=== PATIENT | male | born 1940 | race Caucasian/White ===

== ENCOUNTER 2016-07-14 12:31 | Observation (INO) | payer OTHER ==
[~2016-07-14] VITALS: Ht 172.7 cm; Wt 93.5 kg
[2016-07-14] MEDS ORDERED: LISI-461 PO (12:37)
[2016-07-14] MEDS ORDERED: PRVC/40 PO (12:37)
[2016-07-14] MEDS ORDERED: FERR1TAB13 PO (12:37)
[2016-07-14] MEDS ORDERED: VRPSR180 PO (12:37)
[2016-07-14] MEDS ORDERED: CHOL2000 PO (12:37)
[2016-07-14 12:41] LABS: BASO % 0.7 %; BASO ABS # 0.05 K/uL (0-0.2); COMPLETE YES; EOS % 2.2 %; HEMATOCRIT 40.9 % (42-52); IG% 0.1 %; LYMPH ABS # 3.16 K/uL (1.2-3.4); MEAN CELL VOLUME 89.3 fL (80-100); MEAN CORPUSCULAR HEMOGLOBIN 30.1 pg (25-34); MEAN CORPUSCULAR HGB CONC 33.7 g/dl (32-36); MEAN PLATELET VOLUME 10.1 fL (7.4-10.4); MONO % 5.7 %; NEUT % 47.3 %; PLATELET COUNT 179 K/uL (130-400); RED BLOOD COUNT 4.58 M/uL (4.7-6.1); WHITE BLOOD COUNT 7.18 K/uL (4.8-10.8)
[2016-07-14 12:59] LABS: BLOOD UREA NITROGEN 24 mg/dl (7-18); BUN/CREATININE RATIO 14.4 (10-20); CALCIUM 8.4 mg/dl (8.5-10.1); CARBON DIOXIDE 28 mmol/L (21-32); CHLORIDE 105 mmol/L (98-107); GLUCOSE 123 mg/dl (70-99); POTASSIUM 4.4 mmol/L (3.5-5.1); SODIUM 139 mmol/L (136-145)
[2016-07-14] MEDS ORDERED: ONDANSETRON INJ 2 MG/ML 2 ML VIAL IV STA (13:06)
[2016-07-14] MEDS ORDERED: SODIUM CHLORIDE 0.9% 1000ML 1,000 ML IV STA (13:06)
--- NOTE | 2016-07-14 13:10 | DIAGNOSTIC IMAGING REPORT ---
CHEST ONE VIEW PORTABLE CLINICAL HISTORY: HEART ALERT COMPARISON STUDY: No previous studies for comparison. FINDINGS: Lung volumes are within normal limits. Minimal bibasilar opacity suggests atelectasis. There is no consolidation to suggest pneumonia and there is no evidence of pulmonary edema. Cardiomediastinal silhouette is normal. IMPRESSION: 1. No acute cardiopulmonary findings. 2. Mild bibasilar opacities suggestive of atelectasis. Electronically signed by: Justin Galeas M.D. 07/14/2016 1:09 PM Dictated Date/Time: 07/14/2016 1:08 PM
[2016-07-14 13:11] LABS: ALKALINE PHOSPHATASE 67 U/L (45-117); ALT/SGPT 71 U/L (12-78); AST/SGOT 26 U/L (15-37); CKMB/CK RATIO 1.3 (0-3.0)
[2016-07-14] MEDS ORDERED: ASPIRIN 81 MG CHEW PO STA (13:48)
[2016-07-14] MEDS ORDERED: MoRPHine SULFATE 2 MG/ML CARP IV PRN (14:15)
[2016-07-14] MEDS ORDERED: ACETAMINOPHEN 325 MG TAB PO PRN (14:15)
[2016-07-14] MEDS ORDERED: NITROGLYCERIN 0.4 MG SL PER TAB CHARGE SL PRN (14:15)
[2016-07-14] MEDS ORDERED: ONDANSETRON INJ 2 MG/ML 2 ML VIAL IV PRN (14:15)
[2016-07-14] MEDS ORDERED: POLYETHYLENE (MIRALAX) 17 GM PACK PO PRN (14:15)
[2016-07-14 14:42] LABS: PROTHROMBIN TIME (PATIENT) 10.9 SECONDS (9.0-12.0)
--- NOTE | 2016-07-14 15:14 | EMERGENCY ROOM VISIT NOTE ---
History Report prepared by Mari: Carlos Eduardo Andres Under the Supervision of: Dr. Terrell Early D.O. First contact with patient: 12:30 Chief Complaint: HEART ALERT Stated Complaint: HEART ALERT History of Present Illness The patient is a 76 year old male who presents to the Emergency Room via EMS with complaints of a syncopal episode that occurred prior to arrival this morning. Per EMS, the patient was nauseous and weak while standing at baptism, and proceeded to have a syncopal episode. The patient says that he slowly lowered himself to the ground, and did not hit his head. When EMS was there, the patient was very diaphoretic and weak. The patient's blood pressure was low at around 50-60, which has since improved to around 120-130. The patient was noted to have a pale skin color, which has since improved to a pink color. He is not as diaphoretic currently. Currently, the patient just complains of weakness, tiredness, and nausea, with no chest pain, abdominal pain, or shortness of breath. The patient denies that he ever had any chest pain or shortness of breath. He says that he did nothing abnormal today. He has high cholesterol. The patient has no history of heart disease, heart attacks, aneurysms, or blood clots. Source of History: patient, EMS Onset: Prior to arrival this morning Position: other (global - syncope) Timing: other (episode) Associated Symptoms: + diaphoresis, + fatigue, + nausea, + weakness, No SOB , No abdominal pain, No chest pain Note: Associated symptoms: Low blood pressure prior to arrival, has since gone back up. Pale skin color, which has since improved to a pink color. Review of Systems See HPI for pertinent positives & negatives. A total of 10 systems reviewed and were otherwise negative. Past Medical & Surgical Medical Problems: (1) HLD (hyperlipidemia) (2) Hypotension (3) Postural dizziness with presyncope (4) Syncope Family History Family history omitted secondary to patient's advanced age. Social History Smoking Status: Never Smoker Alcohol Use: none Housing Status: lives with family Occupation Status: retired Current/Historical Medications Scheduled Cholecalciferol (Vitamin D3), 2,000 INTER.UNIT PO DAILY Ferrous Sulfate (Kp Ferrous Sulfate), 325 TAB PO MWF Lisinopril (Zestril), 10 MG PO DAILY Pravastatin Sod (Pravastatin Sodium), 40 MG PO DAILY Verapamil HCl (Verapamil HCl ER), 180 MG PO DAILY Allergies Coded Allergies: No Known Allergies (Unverified , 07/14/16) Physical Exam Vital Signs Date Time Temp Pulse Resp B/P Pulse Ox O2 Delivery O2 Flow Rate FiO2 07/14/16 13:07 55 07/14/16 13:05 56 16 115/64 96 Room Air 07/14/16 12:42 55 21 126/66 95 Room Air 07/14/16 12:33 96 Room Air 07/14/16 12:33 36.4 55 21 133/88 96 Room Air 07/14/16 12:33 96 Room Air Physical Exam GENERAL: sitting up in bed, disheveled EYE EXAM: normal conjunctiva OROPHARYNX: no exudate, no erythema, lips, buccal mucosa, and tongue normal and mucous membranes are moist NECK: supple, no nuchal rigidity, no adenopathy, non-tender LUNGS: Clear to auscultation. Normal chest wall mechanics HEART: no murmurs, S1 normal and S2 normal ABDOMEN: abdomen soft, non-tender, normo-active bowel sounds, no masses, no rebound or guarding. BACK: Back is symmetrical on inspection and there is no deformity, no midline tenderness, no CVA tenderness. SKIN: no rashes and no bruising UPPER EXTREMITIES: upper extremities are grossly normal. Radial pulses equal bilaterally LOWER EXTREMITIES: No pitting edema. NEURO EXAM: Normal sensorium, cranial nerves II-XII intact, normal speech, no weakness of arms, no weakness of legs. No drift. Finger to nose intact. Gross sensation intact. Medical Decision & Procedures ER Provider Diagnostic Interpretation: Radiology results as stated below per my review and the radiologist's interpretation: CHEST ONE VIEW PORTABLE CLINICAL HISTORY: HEART ALERT COMPARISON STUDY: No previous studies for comparison. FINDINGS: Lung volumes are within normal limits. Minimal bibasilar opacity suggests atelectasis. There is no consolidation to suggest pneumonia and there is no evidence of pulmonary edema. Cardiomediastinal silhouette is normal. IMPRESSION: 1. No acute cardiopulmonary findings. 2. Mild bibasilar opacities suggestive of atelectasis. Electronically signed by: Justin Galeas M.D. 07/14/2016 1:09 PM Dictated Date/Time: 07/14/2016 1:08 PM Laboratory Results 07/14/16 12:10 Red Blood Count 4.58, Mean Corpuscular Volume 89.3, Mean Corpuscular Hemoglobin 30.1, Mean Corpuscular Hemoglobin Concent 33.7, Mean Platelet Volume 10.1, Neutrophils (%) (Auto) 47.3, Lymphocytes (%) (Auto) 44.0, Monocytes (%) (Auto) 5.7, Eosinophils (%) (Auto) 2.2, Basophils (%) (Auto) 0.7, Neutrophils # (Auto) 3.39, Lymphocytes # (Auto) 3.16, Monocytes # (Auto) 0.41, Eosinophils # (Auto) 0.16, Basophils # (Auto) 0.05 07/14/16 12:10 Test 07/14/16 12:10 White Blood Count 7.18 K/uL (4.8-10.8) Red Blood Count 4.58 M/uL (4.7-6.1) Hemoglobin 13.8 g/dL (14.0-18.0) Hematocrit 40.9 % (42-52) Mean Corpuscular Volume 89.3 fL (80-100) Mean Corpuscular Hemoglobin 30.1 pg (25-34) Mean Corpuscular Hemoglobin Concent 33.7 g/dl (32-36) Platelet Count 179 K/uL (130-400) Mean Platelet Volume 10.1 fL (7.4-10.4) Neutrophils (%) (Auto) 47.3 % Lymphocytes (%) (Auto) 44.0 % Monocytes (%) (Auto) 5.7 % Eosinophils (%) (Auto) 2.2 % Basophils (%) (Auto) 0.7 % Neutrophils # (Auto) 3.39 K/uL (1.4-6.5) Lymphocytes # (Auto) 3.16 K/uL (1.2-3.4) Monocytes # (Auto) 0.41 K/uL (0.11-0.59) Eosinophils # (Auto) 0.16 K/uL (0-0.5) Basophils # (Auto) 0.05 K/uL (0-0.2) RDW Standard Deviation 44.6 fL (36.4-46.3) RDW Coefficient of Variation 13.6 % (11.5-14.5) Immature Granulocyte % (Auto) 0.1 % Immature Granulocyte # (Auto) 0.01 K/uL (0.00-0.02) Prothrombin Time 10.9 SECONDS (9.0-12.0) Prothromb Time International Ratio 1.0 (0.9-1.1) Anion Gap 6.0 mmol/L (3-11) Est Creatinine Clear Calc Drug Dose 41.4 ml/min Estimated GFR () 44.1 Estimated GFR (Non- 38.1 BUN/Creatinine Ratio 14.4 (10-20) Calcium Level 8.4 mg/dl (8.5-10.1) Total Bilirubin 0.5 mg/dl (0.2-1) Direct Bilirubin 0.1 mg/dl (0-0.2) Aspartate Amino Transf (AST/SGOT) 26 U/L (15-37) Alanine Aminotransferase (ALT/SGPT) 71 U/L (12-78) Alkaline Phosphatase 67 U/L (45-117) Total Creatine Kinase 68 U/L (39-308) Creatine Kinase MB 0.9 ng/ml (0.5-3.6) Creatine Kinase MB Ratio 1.3 (0-3.0) Troponin I < 0.015 ng/ml (0-0.045) Total Protein 7.3 gm/dl (6.4-8.2) Albumin 4.2 gm/dl (3.4-5.0) Lipase 120 U/L (73-393) Laboratory results per my review. Medications Administered Medications (Trade) Dose Ordered Sig/Vinayak Route Start Time Stop Time Status Last Admin Dose Admin Sodium Chloride (Nss 1000ml) 1,000 ml @ 999 mls/hr Q1H1M STAT IV 07/14/16 13:06 07/14/16 14:06 DC 07/14/16 13:22 999 MLS/HR Ondansetron HCl (Zofran Inj) 4 mg NOW STAT IV 07/14/16 13:06 07/14/16 13:07 DC 07/14/16 13:22 4 MG Aspirin (Aspirin Chew) 324 mg NOW STAT PO 07/14/16 13:48 07/14/16 13:49 DC 07/14/16 13:59 324 MG ECG Indication: syncope Rate (beats per minute): 54 Rhythm: sinus bradycardia Findings: 1st degree AV block, other (normal intervals) Comparison ECG Date: compared to June 02 2012, everything is new Change: Previous ECG by EMS: Sinus bradycardia with rate of 54 bpm, ST segment elevations inferior and lateral leads, with flipped T-waves in AVF. ED Course ED COURSE: Vital signs were reviewed and showed bradycardic. The patients medical record was reviewed The above diagnostic studies were performed and reviewed. ED treatments and interventions as stated above. 1230: The patient was evaluated in room B1. A complete history and physical examination was performed. 1233: I discussed the patient with Dr. Amy OGLESBY cardiology. 1235: Bedside US showed no LV wall motion abnormality - visualized by thermoscrew operator Dr. Reyes and he agrees. 1306: Ordered Zofran Inj 4 mg IV, NSS 1000 ml @ 999 mls/hr IV. 1348: Ordered Aspirin Chew 324 mg PO. 1341: Upon reevaluation, the patient is feeling fine. I discussed my findings with the patient and he understands and agrees with the treatment plan. Based on the patients age, coexisting illnesses, exam and lab findings the decision to treat as an inpatient was made. The patient remained stable while under my care. The patient will be evaluated for further management. 1346: I discussed the patient with Cammie Aden - she will evaluate the patient for further treatment. Medical Decision Differential diagnosis includes etiologies such as vasovagal event, infection, hypoglycemia, electrolyte abnormalities, cardiac sources, intracerebral event, toxicologic, neurologic, as well as others were entertained. Patient is a 76-year-old male who presents the ER for single episode. He presented via EMS and received medical command with an EKG showing ST segment elevations in the inferior and lateral leads. It was difficult to ascertain a complete story due to the command call cutting exam. Prior to presentation a STEMI alert was called. Patient's only complaint was nausea. He denied any chest pain or shortness of breath. Bedside ultrasound showed normal LV function and was reviewed with the thermoscrew operator at bedside. He agreed that this was not a STEMI. Blood work was unremarkable along with chest x-ray. Patient was updated at bedside and was admitted to internal medicine with a syncopal event and hypotension likely causing ST segment elevations which resolved. She was given a bolus normal saline, aspirin and Zofran. Consults Time Called: 1225 Consulting Physician: Dr. Amy OGLESBY cardiology Returned Call: 1233 (in person) I discussed the patient with Dr. Amy OGLESBY cardiology. Additional Consults: Time Called: 1341 Consulted Physician: Cammie Aden Returned Call: 1340 Additional Comments: I discussed the patient with Cammie Aden - she will evaluate the patient for further treatment. Impression Primary Impression: Syncope Additional Impression: EKG abnormalities Scribe Attestation The scribe's documentation has been prepared under my direction and personally reviewed by me in its entirety. I confirm that the note above accurately reflects all work, treatment, procedures, and medical decision making performed by me. Departure Information Dispostion Being Evaluated By Hospitalist Forms WORK / SCHOOL INSTRUCTIONS, HOME CARE DOCUMENTATION FORM, IMPORTANT VISIT INFORMATION Patient Instructions My [facility] Problem Qualifiers Primary Impression: Syncope Syncope type: unspecified Qualified Codes: R55 - Syncope and collapse
[2016-07-14 15:15] VITALS: BP 143/67; PULSE 60; TEMP 36.4; O2SAT 95; Ht 172.7 cm; Wt 93.5 kg
[2016-07-14] MEDS ORDERED: IV FLUIDS COMPLETED PRN (15:15)
--- NOTE | 2016-07-14 15:34 | History and Physical ---
History & Physical Date & Time of Service: July 14, 2016 at 15:04 Chief Complaint: Heart Alert Primary Care Physician: Tess Elmore C.R.N.P. History of Present Illness Source: patient, hospital records This is a 76 year old male with PMH of hypertension and hyperlipidemia who presents to the ED for presyncope. Patient follows with Dr. Sharma at the [facility]. Patient states he was feeling well recently, eating normally including breakfast this morning, then at buddhist experience presyncopal episode. After standing for some time patient developed lightheadedness, nausea, and family noticed he was pale and diaphoretic. Patient then sat himself down then leaned over in the pew without any trauma. His shook him without any verbal response. is unsure if his eyes were open. Patient states he was aware the whole time but felt too weak/ tired to respond. There was no seizure like activity or incontinence. When EMS arrived patient's BP was 50s-60s systolic. He received 700 mL IVF bolus prior to arrival. In the ER patient's BP is 110s- 130s systolic. He received additional 1 liter IVF's and aspirin 324 mg in the ER. Patient is feeling better currently. He denies recent fever, chills, LARIOS, blurry vision, difficulty speaking or swallowing, focal weakness or numbness, URI symptoms, cough, SOB, chest pain, palpitations, vomiting, diarrhea, dysuria , frequency, calf pain, edema, abnormal bleeding. Patient denies history of CAD , PA, valve disorder, stroke, DM, lung, liver, or kidney disease. No recent medication changes. Patient states his baseline BP is approximately 120 systolic. Patient reports syncope 20 years ago after bending over and standing up quickly. He reports having an unremarkable Holter monitor and stress test at that time. He states last resting echo was unremarkable in summer of 2015. Family reports possible syncope episodes within the past 5 years but are not able to recall details. Past Medical/Surgical History Medical Problems: (1) HLD (hyperlipidemia) Status: Chronic (2) Hypertension Status: Chronic Surgical Problems: (1) S/P appendectomy Status: Chronic (2) S/P hemorrhoidectomy Status: Chronic Family History FH: CAD (coronary artery disease) FATHER ( of [place] age 78) Social History Smoking Status: Never Smoker Alcohol Use: none Drug Use: none Marital Status: Housing status: lives with significant other Occupational Status: retired (army ) Allergies Coded Allergies: No Known Allergies (Unverified , 07/14/16) Home Medications Scheduled Cholecalciferol (Vitamin D3), 2,000 INTER.UNIT PO DAILY Ferrous Sulfate (Kp Ferrous Sulfate), 325 TAB PO MWF Lisinopril (Zestril), 10 MG PO DAILY Pravastatin Sod (Pravastatin Sodium), 40 MG PO DAILY Verapamil HCl (Verapamil HCl ER), 180 MG PO DAILY Review of Systems Ten systems reviewed and negative except as noted in HPI. Physical Exam Vital Signs Date Time Temp Pulse Resp B/P Pulse Ox O2 Delivery O2 Flow Rate FiO2 07/14/16 13:07 55 07/14/16 13:05 56 16 115/64 96 Room Air 07/14/16 12:42 55 21 126/66 95 Room Air 07/14/16 12:33 96 Room Air 07/14/16 12:33 36.4 55 21 133/88 96 Room Air 07/14/16 12:33 96 Room Air General Appearance: WD/WN, no apparent distress, + pertinent finding (pleasant alert 76 year old male, no distress, , daughter, granddaughter, structural steel painter at bedside) Head: normocephalic, atraumatic Eyes: normal inspection, PERRL, EOMI ENT: pharynx normal, + pertinent finding (bilateral hearing aids) Neck: supple, trachea midline Respiratory/Chest: lungs clear, normal breath sounds, no respiratory distress, no accessory muscle use Cardiovascular: regular rate, rhythm, no murmur, normal peripheral pulses Abdomen/GI: normal bowel sounds, non tender, soft Extremities/Musculoskelatal: no calf tenderness, no pedal edema Neurologic/Psych: pharmacy resident II-XII nml as tested, no motor/sensory deficits ( strength 5/5 all extremities), alert, normal mood/affect, oriented x 3, + pertinent finding (no pronator drift. toes are downgoing. ) Skin: normal color, warm/dry Diagnostics Laboratory Results Results Past 24 Hours Test 07/14/16 12:10 Range/Units White Blood Count 7.18 4.8-10.8 K/uL Red Blood Count 4.58 4.7-6.1 M/uL Hemoglobin 13.8 14.0-18.0 g/dL Hematocrit 40.9 42-52 % Mean Corpuscular Volume 89.3 80-100 fL Mean Corpuscular Hemoglobin 30.1 25-34 pg Mean Corpuscular Hemoglobin Concent 33.7 32-36 g/dl Platelet Count 179 130-400 K/uL Mean Platelet Volume 10.1 7.4-10.4 fL Neutrophils (%) (Auto) 47.3 % Lymphocytes (%) (Auto) 44.0 % Monocytes (%) (Auto) 5.7 % Eosinophils (%) (Auto) 2.2 % Basophils (%) (Auto) 0.7 % Neutrophils # (Auto) 3.39 1.4-6.5 K/uL Lymphocytes # (Auto) 3.16 1.2-3.4 K/uL Monocytes # (Auto) 0.41 0.11-0.59 K/uL Eosinophils # (Auto) 0.16 0-0.5 K/uL Basophils # (Auto) 0.05 0-0.2 K/uL RDW Standard Deviation 44.6 36.4-46.3 fL RDW Coefficient of Variation 13.6 11.5-14.5 % Immature Granulocyte % (Auto) 0.1 % Immature Granulocyte # (Auto) 0.01 0.00-0.02 K/uL Prothrombin Time 10.9 9.0-12.0 SECONDS Prothromb Time International Ratio 1.0 0.9-1.1 Sodium Level 139 136-145 mmol/L Potassium Level 4.4 3.5-5.1 mmol/L Chloride Level 105 98-107 mmol/L Carbon Dioxide Level 28 21-32 mmol/L Anion Gap 6.0 3-11 mmol/L Blood Urea Nitrogen 24 7-18 mg/dl Creatinine 1.70 0.60-1.40 mg/dl Est Creatinine Clear Calc Drug Dose 41.4 ml/min Estimated GFR () 44.1 Estimated GFR (Non- 38.1 BUN/Creatinine Ratio 14.4 10-20 Random Glucose 123 70-99 mg/dl Calcium Level 8.4 8.5-10.1 mg/dl Total Bilirubin 0.5 0.2-1 mg/dl Direct Bilirubin 0.1 0-0.2 mg/dl Aspartate Amino Transf (AST/SGOT) 26 15-37 U/L Alanine Aminotransferase (ALT/SGPT) 71 12-78 U/L Alkaline Phosphatase 67 45-117 U/L Total Creatine Kinase 68 39-308 U/L Creatine Kinase MB 0.9 0.5-3.6 ng/ml Creatine Kinase MB Ratio 1.3 0-3.0 Troponin I < 0.015 0-0.045 ng/ml Total Protein 7.3 6.4-8.2 gm/dl Albumin 4.2 3.4-5.0 gm/dl Lipase 120 73-393 U/L Diagnostic Radiology CHEST ONE VIEW PORTABLE CLINICAL HISTORY: HEART ALERT COMPARISON STUDY: No previous studies for comparison. FINDINGS: Lung volumes are within normal limits. Minimal bibasilar opacity suggests atelectasis. There is no consolidation to suggest pneumonia and there is no evidence of pulmonary edema. Cardiomediastinal silhouette is normal. IMPRESSION: 1. No acute cardiopulmonary findings. 2. Mild bibasilar opacities suggestive of atelectasis. EKG pre-hospital EKG showed [address] elevation in and lead II and aVF repeat EKG showed resolution of ST abnormalities Impression Assessment and Plan PRESYNCOPE Possibly due to orthostatic hypotension given the history; Rule out ACS Was hypotensive to 50s-60s systolic prior to arrival -> resolved to 110s-130s in ER Had inferior ST elevation prior to arrival which resolved on repeat EKG Heart alert called in ER; patient evaluated by Dr. Reyes Bedside echo grossly normal EF per ER provider Initial troponin negative Denies chest pain or SOB Monitor orthostatic vitals Hold antihypertensive medications- lisinopril and verapamil Trend serial cardiac enzymes Check echo in am Check fasting lipid panel in am Consult cardiology POSSIBLE KAYE Creatinine is 1.7; no baseline available for comparison Records requested from his PCP at the [facility] Received IVF's 700 mL en route and 1 liter in ER Repeat PRP in am ATELECTASIS CXR showed bibasilar opacities suggestive of atelectasis Denies fever, cough, SOB Incentive spirometry ordered HYPERLIPIDEMIA Continue pravastatin DVT PROPHYLAXIS Heparin SQ CODE STATUS Full code per my discussion with the patient DISPOSITION Observation to telemetry Follows with Dr. Toscano at the [facility] for primary care Patient seen in collaboration with Dr. Ruelas. Please see her addendum. I have seen and examined the patient and agree with the assessment and plan as stated above. My impression is this was a benign episode of lightheadedness 2/ 2 OH which responded well to IVF. For the EKG changes that were seen initially , including ST elevation in II and AVF, which then resolved minutes later, we have placed him on telemetry, ordered serial enzymes and will have Cardiology see him in the morning and review his telemetry. He has already had two sets of negative cardiac enzymes and is asymptomatic. Records request will be helpful to give a more accurate medical history. Suraj, DO Level of Care Telemetry Resuscitation Status FULL RESUSCITATION VTE Prophylaxis VTE Risk Assessment Done? Y/N: Yes Risk Level: Moderate Given or contraindicated: Unfractionated heparin SQ
[2016-07-14 18:43] LABS: CKMB/CK RATIO 1.2 (0-3.0)
[2016-07-14 19:16] VITALS: BP 163/73; PULSE 65; TEMP 36.7; O2SAT 95
[2016-07-14] MEDS: HEPARIN SOD 5000 UNIT/0.5 ML CARP SQ SCH (22:00)
[2016-07-14 23:57] VITALS: BP_SYST 145; BP_SYST 151; BP_SYST 178; BP_DIAS 73; BP_DIAS 77; BP_DIAS 81; PULSE 60; PULSE 61; TEMP 36.9; O2SAT 92
[2016-07-15 01:12] LABS: CKMB/CK RATIO 1.5 (0-3.0)
[2016-07-15 04:16] VITALS: BP 123/73; PULSE 88; TEMP 36.8; O2SAT 94
[2016-07-15] MEDS: HEPARIN SOD 5000 UNIT/0.5 ML CARP SQ SCH ×2 (06:00→14:00)
[2016-07-15 06:04] LABS: HEMATOCRIT 37.2 % (42-52); MEAN CELL VOLUME 90.3 fL (80-100); MEAN CORPUSCULAR HEMOGLOBIN 30.6 pg (25-34); MEAN CORPUSCULAR HGB CONC 33.9 g/dl (32-36); MEAN PLATELET VOLUME 10.4 fL (7.4-10.4); PLATELET COUNT 146 K/uL (130-400); RED BLOOD COUNT 4.12 M/uL (4.7-6.1); WHITE BLOOD COUNT 6.26 K/uL (4.8-10.8)
[2016-07-15 06:36] LABS: BUN/CREATININE RATIO 17.9 (10-20); CALCIUM 7.9 mg/dl (8.5-10.1); CREATININE 1.4 mg/dl (0.60-1.40); POTASSIUM 4.4 mmol/L (3.5-5.1)
[2016-07-15 06:39] LABS: CHOLESTEROL/HDL RATIO 3.8
[2016-07-15 07:01] VITALS: BP_SYST 121; BP_SYST 132; BP_SYST 139; BP_DIAS 66; BP_DIAS 67; BP_DIAS 76; PULSE 66; TEMP 36.8; O2SAT 94
[2016-07-15] MEDS ORDERED: PRAVASTATIN SOD 40 MG TAB PO SCH (09:00)
[2016-07-15] MEDS ORDERED: ASPIRIN 81 MG ECTAB PO SCH (09:00)
[2016-07-15] MEDS ORDERED: FERROUS SULFATE 325 MG TAB PO SCH (09:00)
[2016-07-15] MEDS ORDERED: CHOLECALCIFEROL 1000 INTER.UNIT TAB PO SCH (09:00)
--- NOTE | 2016-07-15 09:45 | ECHOCARDIOGRAM REPORT ---
*NOTICE TO RECEIVING [employer] This information is strictly Confidential and protected under [place] law. [place] law prohibits you from making any further disclosure of this information unless further disclosure is expressly permitted by the written consent of the person to whom it pertains or is authorized by law. A general authorization for the release of medical or other information is not sufficient for this purpose. Hospital accepts no responsibility if the information is made available to any other person, INCLUDING THE PATIENT. Interpretation Summary * Name: JUAN FRANCISCO LAGUNAS Study Date: 07/15/2016 06:46 AM BP: 145/81 mmHg * Patient Location: [facility] HR: 88 * : 1940 (M/d/yyyy) Gender: Male Height: 68 in * Age: 76 yrs Ethnicity: CA Weight: 217 lb * Ordering Physician: Shannon Ruelas * Referring Physician: Self, Referred * Performed By: Arielle Guerrero RCS * * Reason For Study: Alt. of Consciousness * BSA: 2.1 m2 * -- Conclusions -- * Normal LV chamber size and wall thickness. * Normal LV systolic function, EF 65-70%. * No segmental left ventricular wall motion abnormalities are noted. * Grade I diastolic dysfunction. * No significant valvular pathology. Procedure Details * A complete two-dimensional transthoracic echocardiogram was performed (2D, M-mode, Doppler and color flow Doppler). Left Ventricle * The left ventricle is normal in size. * There is normal left ventricular wall thickness. * Left ventricular systolic function is normal. * No segmental left ventricular wall motion abnormalities are noted. * Ejection Fraction = 65-70%. * The left ventricular wall motion is normal. Right Ventricle * The right ventricular cavity size is normal (basal dimension <4.2 cm in right ventricular apical 4-chamber view). * The right ventricular systolic function is normal as assessed by tricuspid annular plane systolic excursion (TAPSE) (normal >1.5 cm). Atria * The left atrial size is normal. * Right atrial size is normal. * No ASD detected; PFO is not assessed. Mitral Valve * The mitral valve is normal in structure and function. Tricuspid Valve * The tricuspid valve is normal in structure and function. Aortic Valve * The aortic valve is not well visualized. * The aortic valve is trileaflet. * No hemodynamically significant valvular aortic stenosis. * There is no significant aortic regurgitation. Pulmonic Valve * The pulmonary valve is not well seen, but the Doppler examination is normal without significant regurgitation or stenosis. Great Vessels * The aortic root is normal size. Pericardium/Pleural * There is no pericardial effusion. Left Ventricular Diastolic Function * Grade I diastolic dysfunction, (abnormal relaxation pattern). MMode 2D Measurements and Calculations IVSd 0.99 cm IVSs 1.3 cm LVIDd 4.1 cm LVIDs 2.7 cm LVPWd 10 cm LVPWs 1.3 cm IVS/LVPW 0.99 FS 35.4 % EDV(Teich) 74.8 ml ESV(Teich) 25.9 ml EF(Teich) 65.3 % EDV(cubed) 69.6 ml ESV(cubed) 18.7 ml EF(cubed) 73.1 % % IVS thick 28.8 % % LVPW thick 29.8 % LV mass(C)d 131.4 grams LV mass(C)dI 62.1 grams/m\S\2 LV mass(C)s 103.5 grams LV mass(C)sI 48.9 grams/m\S\2 CO(Teich) 3.0 l/min CI(Teich) 1.4 l/min/m\S\2 SV(Teich) 48.9 ml SI(Teich) 23.1 ml/m\S\2 CO(cubed) 3.1 l/min CI(cubed) 1.5 l/min/m\S\2 SV(cubed) 50.9 ml SI(cubed) 24.0 ml/m\S\2 Ao root diam 2.7 cm Ao root area 5.8 cm\S\2 LA dimension 3.4 cm LA/Ao 1.3 LVAd ap4 27.5 cm\S\2 LVLd ap4 7.8 cm EDV(MOD-sp4) 80.0 ml LVAs ap4 13.4 cm\S\2 LVLs ap4 6.1 cm ESV(MOD-sp4) 26.0 ml EF(MOD-sp4) 67.5 % LVAd ap2 31.5 cm\S\2 LVLd ap2 8.8 cm EDV(MOD-sp2) 93.0 ml LVAs ap2 17.2 cm\S\2 LVLs ap2 7.5 cm ESV(MOD-sp2) 32.0 ml EF(MOD-sp2) 65.6 % CO(MOD-sp4) 3.3 l/min CI(MOD-sp4) 1.6 l/min/m\S\2 SV(MOD-sp4) 54.0 ml SI(MOD-sp4) 25.5 ml/m\S\2 CO(MOD-sp2) 3.7 l/min CI(MOD-sp2) 1.8 l/min/m\S\2 SV(MOD-sp2) 61.0 ml SI(MOD-sp2) 28.8 ml/m\S\2 Doppler Measurements and Calculations MV E max callie 57.8 cm/sec MV A max callie 77.0 cm/sec MV E/A 0.75 MV P1/2t max callie 66.8 cm/sec MV P1/2t 92.0 msec MVA(P1/2t) 2.4 cm\S\2 MV dec slope 212.7 cm/sec\S\2 MV dec time 0.24 sec Ao V2 max 97.0 cm/sec Ao max PG 3.8 mmHg Ao max PG (full) 0.61 mmHg LV V1 max PG 3.1 mmHg LV V1 max 88.7 cm/sec PA V2 max 95.9 cm/sec PA max PG 3.7 mmHg PI max callie 216.0 cm/sec PI max PG 18.7 mmHg PI dec slope 176.9 cm/sec\S\2 PI P1/2t 357.7 msec
--- NOTE | 2016-07-15 10:26 | Cardiology Consultation ---
Cardiology Consultation Date of Consultation: July 15, 2016 Requesting Physician: Suraj Attending Damper Fitter: Sylvester (Jori Schaffer PA-C) History of Present Illness History of Present Illness: Mr. Arroyo is a very pleasant 76 year old male who is being seen at the request of Dr. Ruelas. Reasons for consultation include syncope, EKG changes initially, resolved. Mr. Arroyo describes standing for a prolonged period of time at [employer] yesterday while two baptisms were transpiring. He notes, while standing, developing lightheadedness that required him to sit down. While sitting in the pew he began to feel warm and diaphoretic. He notes that he had to put his hands on the pew in front of him and that he knew he had to get down fast. He notes that his stomach started rolling, developing nausea without emesis. He felt weak and couldn't move, talk, or open his eyes. He notes laying there until EMS arrived. He does not believe he experienced true loss of consciousness. He denies tongue bitting. Denies bowel or bladder incontinence. No seizure type activity noted on review of the available documentation and discussion with the patient. The patient ate a normal breakfast Friday. He denies recent illness or injury. No recent surgery. He denies recent issues with vomiting or diarrhea. Denies recent medication changes. Upon EMS arrival the patient was noted to be hypotensive. He was administered IVF's, 700 mL prior to arrival at the [facility] ER. Systolic BP on presentation was 110s-130s. He received an additional 1 liter IVF's as well as Aspirin 324 mg in the ER. EKG dated and timed July 14, 2016 at 12:33:06 revealed sinus bradycardia at 54 bpm with a first degree AV block and mild ST segment elevation in the inferior and lateral leads. EKG this morning reveals sinus rhythm at 62 bpm with a first degree AV block. Cardiac enzymes are negative times three. Admission CXR showed no acute cardiopulmonary findings. Creatinine was 1.7 on presentation, 1.4 mg/dL this morning. The patient notes similar (near syncope/syncope) spells in the past. He describes an episode, after his alarm clock went off, when he bent over to pick something up off the floor then walked to the bathroom and experienced a syncope episode ~ 20 years ago. He describes another spell when he was out in the yard playing with his granddaughter and stood up then dropped to the ground. The patient describes substernal chest soreness when walking up an incline. This does not require him to stop or slow down, resolving when walking on the level. This pattern has not progressed in severity and has been present for years. He denies change in exercise tolerance. No resting or nocturnal chest discomfort. No palpitations. No new or worsening dyspnea, cough, orthopnea, PND , or peripheral edema. No history of CO, CHF, heart murmur, rheumatic fever, or scarlet fever. (Jori Schaffer PA-C) History Past Medical and Surgical History: Hypertension Dyslipidemia Family history of coronary artery disease Appendectomy in 1966 Hemorrhoidectomy in 1971 Bilateral cataract extractions Family History: Mother is alive at 97. Father at 78 with an CO. He has one brother and three sisters; two siblings with diabetes mellitus Social History: Nonsmoker. No alcohol. No illegal drug use. . Four children without cardiac issues. Retired. [employer], 3 years, 2 months, and 3 days. [place] during the [place] War. After the [employer] he worked for [employer] and [employer]. [facility]. He notes recently transferring from the [facility] to the [facility]. He followed with Dr. Sharma in [place] though has yet to establish in [place]. (Jori Schaffer PA-C) Review Of Systems General: No fever or chills. HEENT: Bilateral cataract extraction. LUMBEE. Bilateral hearing aids. No headache. No head trauma. Cardiovascular: See above. Pulmonary: No cough. No wheeze. No hemoptysis. No history of COPD, emphysema, PE , or sleep apnea. Gastrointestinal: See above. Skin: No rash. No tick bites. Musculoskeletal: Arthritis. Neurological: Denies history of TIA, CVA, or seizures Complete review of systems is as stated above, negative, or noncontributory. (Jori Schaffer PA-C) Allergies Coded Allergies: No Known Allergies (Unverified , 07/14/16) Medications Reported Home Medications Medications Dose Route/Sig Max Daily Dose Days Date Category Kp Ferrous Sulfate (Ferrous Sulfate) 325 Mg Tab 325 Tab PO MWF 07/14/16 Reported Pravastatin Sodium (Pravastatin Sod) 40 Mg Tab 40 Mg PO DAILY 07/14/16 Reported Verapamil HCl ER (Verapamil HCl) 180 Mg Tabcr 180 Mg PO DAILY 07/14/16 Reported Zestril (Lisinopril) 10 Mg Tab 10 Mg PO DAILY 07/14/16 Reported Vitamin D3 (Cholecalciferol) 2,000 Unit Cap 2,000 Inter.unit PO DAILY 90 07/14/16 Reported (Jori Schaffer PA-C) Physical Exam Vital Signs (Last 8hrs): Last 8 Hrs Date Time Temp Pulse Resp B/P Pulse Ox O2 Delivery O2 Flow Rate FiO2 07/15/16 07:57 Room Air 07/15/16 07:01 36.8 66 18 132/76 94 Room Air 66 139/67 66 121/66 07/15/16 04:16 36.8 88 20 123/73 94 Room Air 07/15/16 04:00 Room Air General Appearance: Alert and Oriented x3. NAD. Head: Normocephalic Atraumatic. Eyes: PER, EOMI, conjunctiva and sclera clear Neck: Supple. No carotid bruits noted. No JVD. No HJD. Respiratory: Breath sounds clear to auscultation bilaterally. No w/r/r. Cardiovascular: RRR, 70 bpm. Grade II/ systolic murmur heard best at the LLSB. No diastolic murmur. No rub. No gallop. PMI is not displaced. Abdomen: +BS. No abdominal bruits. Soft. Nontender. No masses appreciated. Extremities: No edema. No clubbing. No cyanosis. Distal pulses 2/4 bilaterally. Neuro: No focal deficits. Psychiatric: Normal affect. (Jori Schaffer PA-C) Data Last 24 Hours Test 07/14/16 12:10 07/14/16 18:15 07/15/16 00:25 07/15/16 05:12 White Blood Count 7.18 K/uL 6.26 K/uL Red Blood Count 4.58 M/uL 4.12 M/uL Hemoglobin 13.8 g/dL 12.6 g/dL Hematocrit 40.9 % 37.2 % Mean Corpuscular Volume 89.3 fL 90.3 fL Mean Corpuscular Hemoglobin 30.1 pg 30.6 pg Mean Corpuscular Hemoglobin Concent 33.7 g/dl 33.9 g/dl Platelet Count 179 K/uL 146 K/uL Mean Platelet Volume 10.1 fL 10.4 fL Neutrophils (%) (Auto) 47.3 % Lymphocytes (%) (Auto) 44.0 % Monocytes (%) (Auto) 5.7 % Eosinophils (%) (Auto) 2.2 % Basophils (%) (Auto) 0.7 % Neutrophils # (Auto) 3.39 K/uL Lymphocytes # (Auto) 3.16 K/uL Monocytes # (Auto) 0.41 K/uL Eosinophils # (Auto) 0.16 K/uL Basophils # (Auto) 0.05 K/uL RDW Standard Deviation 44.6 fL 46.1 fL RDW Coefficient of Variation 13.6 % 13.8 % Immature Granulocyte % (Auto) 0.1 % Immature Granulocyte # (Auto) 0.01 K/uL Prothrombin Time 10.9 SECONDS Prothromb Time International Ratio 1.0 Sodium Level 139 mmol/L 140 mmol/L Potassium Level 4.4 mmol/L 4.4 mmol/L Chloride Level 105 mmol/L 108 mmol/L Carbon Dioxide Level 28 mmol/L 27 mmol/L Anion Gap 6.0 mmol/L 5.0 mmol/L Blood Urea Nitrogen 24 mg/dl 25 mg/dl Creatinine 1.70 mg/dl 1.40 mg/dl Est Creatinine Clear Calc Drug Dose 41.4 ml/min 49.0 ml/min Estimated GFR () 44.1 55.8 Estimated GFR (Non- 38.1 48.1 BUN/Creatinine Ratio 14.4 17.9 Random Glucose 123 mg/dl 86 mg/dl Calcium Level 8.4 mg/dl 7.9 mg/dl Total Bilirubin 0.5 mg/dl Direct Bilirubin 0.1 mg/dl Aspartate Amino Transf (AST/SGOT) 26 U/L Alanine Aminotransferase (ALT/SGPT) 71 U/L Alkaline Phosphatase 67 U/L Total Creatine Kinase 68 U/L 58 U/L 55 U/L Creatine Kinase MB 0.9 ng/ml 0.7 ng/ml 0.8 ng/ml Creatine Kinase MB Ratio 1.3 1.2 1.5 Troponin I < 0.015 ng/ml < 0.015 ng/ml < 0.015 ng/ml Total Protein 7.3 gm/dl Albumin 4.2 gm/dl Lipase 120 U/L Triglycerides Level 93 mg/dl Cholesterol Level 139 mg/dl HDL Cholesterol 37 mg/dl LDL Cholesterol, Calculated 83 mg/dl VLDL Cholesterol, Calculated 19 mg/dl Cholesterol/HDL Ratio 3.8 Telemetry: Sinus at 76. PVC's in singles. No significant bradyarrhythmias. No tachyarrhythmias. (Jori Schaffer PA-C) Assessment & Plan ASSESSMENT: Near syncope felt to be secondary to orthostatic hypotension, vasovagal event Mild transient inferior and lateral ST elevation prior to arrival, resolved Cardiac enzymes negative x 3 Benign overnight asset protection greeter Formal resting echocardiography pending RECOMMENDATIONS/PLAN: Await formal resting echocardiography results. If TTE is OK, proceed with exercise stress echocardiography given transient EKG findings, chronic stable chest discomfort, risk factors Recommend reduction in Lisinopril dosing from 10 mg/day to 5 mg/day Recommend reduction in verapamil dosing from 180 mg/day to 120 mg/day Recommend initiation of ASA 81 mg/day Outpatient ambulatory electrocardiography to assess for significant arrhythmias. Consider intensification of statin therapy Further recommendations pending the above, evaluation by Dr. Phan, and his ongoing hospitalization. (Jori Schaffer PA-C) Pt seen and examined, agree with findings and assessment as per Jori Benitez. Presyncopal event appears to be orthostatic, discussed with patient and . They state that he does not drink water only caffinated soda. Recommend increasing water intake and decreasing soda intake. Chest pain has been stable for several months and given his long standing verapamil use believe he would benefit from Lexiscan nuclear stress test. Patient would not like to remain inpatient to complete, [facility]. Will need to be arranged upon discharge. Patient is also welcome to have testing performed at [facility] but he declined. Change verapamil dose as recommended above, f/u with pcp for further management. (Jagdeep Phan D.O.)
[2016-07-15 11:44] VITALS: BP 147/74; PULSE 62; TEMP 36.8; O2SAT 93
[2016-07-15] MEDS ORDERED: LISINOPRIL 5 MG TAB PO ONE (13:09)
[2016-07-15] MEDS ORDERED: VERAPAMIL HCL 120 MG TABCR PO ONE (13:10)
--- NOTE | 2016-07-15 14:11 | Progress Note ---
Medicine Progress Note Date & Time of Visit: July 15, 2016 at 13:52. Subjective Pt was seen and examined Lying in bed very comfortable with family at bedside Pt said that he feels fine He is very anxious to go home today Denies any chest pain, palpitation, dizziness and SOB Objective Last 8 Hrs Date Time Temp Pulse Resp B/P Pulse Ox O2 Delivery O2 Flow Rate FiO2 07/15/16 12:46 Room Air 07/15/16 11:44 36.8 62 18 147/74 93 Room Air 07/15/16 07:57 Room Air 07/15/16 07:01 36.8 66 18 132/76 94 Room Air 66 139/67 66 121/66 Physical Exam: General- No acute distress Head- atraumatic Eyes- PERRL, EOMI ENT- oropharynx clear Neck- supple, no JVD Lungs- clear to auscultation and percussion Heart- regular rhythm; + systolic murmur Abdomen- normal bowel sounds, soft Extremities- no pretibial edema, no calf tenderness Neuro- alert, oriented x 3; PERRL, EOMI; no facial palsy Skin- warm & dry Laboratory Results: Last 24 Hours Test 07/14/16 18:15 07/15/16 00:25 07/15/16 05:12 Total Creatine Kinase 58 U/L 55 U/L Creatine Kinase MB 0.7 ng/ml 0.8 ng/ml Creatine Kinase MB Ratio 1.2 1.5 Troponin I < 0.015 ng/ml < 0.015 ng/ml White Blood Count 6.26 K/uL Red Blood Count 4.12 M/uL Hemoglobin 12.6 g/dL Hematocrit 37.2 % Mean Corpuscular Volume 90.3 fL Mean Corpuscular Hemoglobin 30.6 pg Mean Corpuscular Hemoglobin Concent 33.9 g/dl RDW Standard Deviation 46.1 fL RDW Coefficient of Variation 13.8 % Platelet Count 146 K/uL Mean Platelet Volume 10.4 fL Sodium Level 140 mmol/L Potassium Level 4.4 mmol/L Chloride Level 108 mmol/L Carbon Dioxide Level 27 mmol/L Anion Gap 5.0 mmol/L Blood Urea Nitrogen 25 mg/dl Creatinine 1.40 mg/dl Est Creatinine Clear Calc Drug Dose 49.0 ml/min Estimated GFR () 55.8 Estimated GFR (Non- 48.1 BUN/Creatinine Ratio 17.9 Random Glucose 86 mg/dl Calcium Level 7.9 mg/dl Triglycerides Level 93 mg/dl Cholesterol Level 139 mg/dl HDL Cholesterol 37 mg/dl LDL Cholesterol, Calculated 83 mg/dl VLDL Cholesterol, Calculated 19 mg/dl Cholesterol/HDL Ratio 3.8 Assessment & Plan PRESYNCOPE Possibly due to orthostatic hypotension vs hypotension Had inferior ST elevation prior to arrival which resolved on repeat EKG Heart alert called in ER; patient evaluated by Dr. Reyes Troponinx3 negative Cardiology consulted Case discussed with Dr. Phan that recommends to decrease lisinopril to 5 mg and verapamil to 120mg Has been complaint of chest pain for several month that is stable, denies any chest pain currently Pt does not want to stay in the hospital for further testing. He will need a Lexiscan nuclear stress test. He said that he will like to get the Lexiscan nuclear stress test [facility] Echo done Normal LV chamber size and wall thickness. * Normal LV systolic function, EF 65-70%. * No segmental left ventricular wall motion abnormalities are noted. * Grade I diastolic dysfunction. * No significant valvular pathology. POSSIBLE KAYE Creatinine is 1.7 on admission Creatine improved to 1.4 today Stable ATELECTASIS CXR showed bibasilar opacities suggestive of atelectasis Denies fever, cough, SOB Incentive spirometry ordered HYPERLIPIDEMIA Continue pravastatin DVT PROPHYLAXIS Heparin SQ CODE STATUS Full code per my discussion with the patient DISPOSITION Consultants: cardio Current Inpatient Medications: Current Inpatient Medications Medications (Trade) Dose Ordered Sig/Vinayak Route Start Time Stop Time Status Last Admin Dose Admin Heparin Sodium (Porcine) (Heparin Sq 5000 Unit/0.5ml) 5,000 unit Q8 SQ 07/14/16 22:00 08/13/16 21:59 Acetaminophen (Tylenol Tab) 650 mg Q4H PRN PO 07/14/16 14:15 08/13/16 14:14 Ondansetron HCl (Zofran Inj) 4 mg Q6H PRN IV 07/14/16 14:15 08/13/16 14:14 Nitroglycerin (Nitrostat Tab) 0.4 mg UD PRN SL 07/14/16 14:15 08/13/16 14:14 Morphine Sulfate (MoRPHine SULFATE INJ) 2 mg Q2H PRN IV 07/14/16 14:15 07/28/16 14:14 Aspirin (Ecotrin Tab) 81 mg QAM PO 07/15/16 09:00 08/14/16 08:59 07/15/16 08:18 81 MG Polyethylene (Miralax Powder Packet) 17 gm DAILY PRN PO 07/14/16 14:15 08/13/16 14:14 Pravastatin Sodium (Pravachol Tab) 40 mg DAILY PO 07/15/16 09:00 08/14/16 08:59 07/15/16 08:18 40 MG Cholecalciferol (Vitamin D Tab) 2,000 inter.unit DAILY PO 07/15/16 09:00 08/14/16 08:59 07/15/16 08:17 2,000 INTER.UNIT Ferrous Sulfate (Feosol Tab) 325 mg MoWeFr@0900 PO 07/15/16 09:00 08/14/16 08:59 07/15/16 08:18 325 MG Miscellaneous (Iv Fluids Completed) 1 ea PRN PRN N/A 07/14/16 15:15 07/14/17 15:14 Lisinopril (Zestril Tab) 5 mg QAM PO 07/16/16 09:00 08/15/16 08:59 Verapamil HCl (Calan-Sr Tab) 120 mg QAM PO 07/16/16 09:00 08/15/16 08:59
[2016-07-15] MEDS ORDERED: ASPEC81 PO (15:13)
[2016-07-15] MEDS ORDERED: VERA120T65 PO (15:13)
[2016-07-15] MEDS ORDERED: LSN5 PO (15:13)
--- NOTE | 2016-07-15 15:21 | Discharge Instructions ---
Discharge Instructions Date of Service July 15, 2016. Admission Reason for Admission: Postural Dizziness W/Presyncope Discharge Discharge Diagnosis / Problem: PRESYNCOPE, ACUTE KIDNEY INJURY Discharge Goals Goal(s): Decrease discomfort, Improve function, Improve disease control Activity Recommendations Activity Limitations: resume your previous activity ( TOLERATED) . Instructions / Follow-Up Instructions / Follow-Up Please follow up with your primary care physician at the [facility] in 1-2 weeks You will need a Lexiscan nuclear stress test that needs to be arranged by your physician at the [facility] Monitor your blood pressure Lisinopril decreased to 5 mg daily Verapamil decreased to 120mg daily Your physician can manage your blood pressure by titrate the blood pressure medications Current Hospital Diet Patient's current hospital diet: AHA Diet (Heart Healthy) Discharge Diet Recommended Diet: AHA Diet (Heart Healthy) Pending Studies Studies pending at discharge: no Laboratory Results Lipid Panel Test 07/15/16 05:12 Range/Units Triglycerides Level 93 0-150 mg/dl Cholesterol Level 139 0-200 mg/dl HDL Cholesterol 37 mg/dl Cholesterol/HDL Ratio 3.8 LDL Cholesterol, Calculated 83 mg/dl Medical Emergencies . Who to Call and When: Medical Emergencies: If at any time you feel your situation is an emergency, please call 911 immediately. . Non-Emergent Contact Non-Emergency issues call your: Primary Care Provider Call Non-Emergent contact if: you have any medication questions . . "Provider Documentation" section prepared by Wild Elena. . VTE Core Measure Inpt VTE Proph given/why not?: Unfractionated heparin SQ
[2016-07-15 15:44] VITALS: BP 150/79; PULSE 62; TEMP 36.6; O2SAT 94
[2016-07-15 16:25] VITALS: BP 150/79; PULSE 62; TEMP 36.6; O2SAT 94
[2016-07-16] MEDS ORDERED: VERAPAMIL HCL 120 MG TABCR PO SCH (09:00)
[2016-07-16] MEDS ORDERED: LISINOPRIL 5 MG TAB PO SCH (09:00)
--- NOTE | 2016-07-18 10:47 | Discharge Summary ---
Discharge Summary Date of Service July 18, 2016. Discharge Summary Admission Date: July 14, 2016 at 15:05 Discharge Date: July 15, 2016 Discharge Disposition: Home Principal Diagnosis: Presyncope Secondary Diagnoses/Problems: KAYE Dyslipidemia Procedures: CHEST ONE VIEW PORTABLE CLINICAL HISTORY: HEART ALERT COMPARISON STUDY: No previous studies for comparison. FINDINGS: Lung volumes are within normal limits. Minimal bibasilar opacity suggests atelectasis. There is no consolidation to suggest pneumonia and there is no evidence of pulmonary edema. Cardiomediastinal silhouette is normal. IMPRESSION: 1. No acute cardiopulmonary findings. 2. Mild bibasilar opacities suggestive of atelectasis. Interpretation Summary * Name: JUAN FRANCISCO LAGUNAS Study Date: 07/15/2016 06:46 AM BP: 145/81 mmHg * [facility] HR: 88 * : 1940 (M/d/yyyy) Gender: Male Height: 68 in * Age: 76 yrs Ethnicity: CA Weight: 217 lb * Ordering Physician: Shannon Ruelas * Referring Physician: Self, Referred * Performed By: Arielle Guerrero RCS * * Reason For Study: Alt. of Consciousness * BSA: 2.1 m2 * -- Conclusions -- * Normal LV chamber size and wall thickness. * Normal LV systolic function, EF 65-70%. * No segmental left ventricular wall motion abnormalities are noted. * Grade I diastolic dysfunction. * No significant valvular pathology. Procedure Details * A complete two-dimensional transthoracic echocardiogram was performed (2D, M-mode, Doppler and color flow Doppler). Left Ventricle * The left ventricle is normal in size. * There is normal left ventricular wall thickness. * Left ventricular systolic function is normal. * No segmental left ventricular wall motion abnormalities are noted. * Ejection Fraction = 65-70%. * The left ventricular wall motion is normal. Right Ventricle * The right ventricular cavity size is normal (basal dimension <4.2 cm in right ventricular apical 4-chamber view). * The right ventricular systolic function is normal as assessed by tricuspid annular plane systolic excursion (TAPSE) (normal >1.5 cm). Atria * The left atrial size is normal. * Right atrial size is normal. * No ASD detected; PFO is not assessed. Mitral Valve * The mitral valve is normal in structure and function. Tricuspid Valve * The tricuspid valve is normal in structure and function. Aortic Valve * The aortic valve is not well visualized. * The aortic valve is trileaflet. * No hemodynamically significant valvular aortic stenosis. * There is no significant aortic regurgitation. Pulmonic Valve * The pulmonary valve is not well seen, but the Doppler examination is normal without significant regurgitation or stenosis. Great Vessels * The aortic root is normal size. Pericardium/Pleural * There is no pericardial effusion. Left Ventricular Diastolic Function * Grade I diastolic dysfunction, (abnormal relaxation pattern). Consultations: cardio Medication Reconciliation New Medications: Aspirin (Aspirin EC Low Dose) 81 Mg Ectab 81 MG PO QAM for 30 Days Lisinopril (Lisinopril) 5 Mg Tab 5 MG PO QAM for 30 Days, #30 TAB Verapamil HCl (Verapamil HCl ER) 120 Mg Tabcr 120 MG PO QAM for 30 Days Continued Medications: Cholecalciferol (Vitamin D3) 2,000 Unit Cap 2000 INTER.UNIT PO DAILY for 90 Days, CAP 3 Refills Ferrous Sulfate (Kp Ferrous Sulfate) 325 Mg Tab 325 TAB PO MWF, TAB 3 Refills Pravastatin Sod (Pravastatin Sodium) 40 Mg Tab 40 MG PO DAILY Discontinued Medications: Lisinopril (Zestril) 10 Mg Tab 10 MG PO DAILY, TAB Verapamil HCl (Verapamil HCl ER) 180 Mg Tabcr 180 MG PO DAILY Admission Information HPI (per Admitting provider): This is a 76 year old male with PMH of hypertension and hyperlipidemia who presents to the ED for presyncope. Patient follows with Dr. Shr[facility]. Patient states he was feeling well recently, eating normally including breakfast this morning, then at mandaen experience presyncopal episode. After standing for some time patient developed lightheadedness, nausea, and family noticed he was pale and diaphoretic. Patient then sat himself down then leaned over in the pew without any trauma. His shook him without any verbal response. is unsure if his eyes were open. Patient states he was aware the whole time but felt too weak/ tired to respond. There was no seizure like activity or incontinence. When EMS arrived patient's BP was 50s-60s systolic. He received 700 mL IVF bolus prior to arrival. In the ER patient's BP is 110s- 130s systolic. He received additional 1 liter IVF's and aspirin 324 mg in the ER. Patient is feeling better currently. He denies recent fever, chills, LARIOS, blurry vision, difficulty speaking or swallowing, focal weakness or numbness, URI symptoms, cough, SOB, chest pain, palpitations, vomiting, diarrhea, dysuria , frequency, calf pain, edema, abnormal bleeding. Patient denies history of CAD , UT, valve disorder, stroke, DM, lung, liver, or kidney disease. No recent medication changes. Patient states his baseline BP is approximately 120 systolic. Patient reports syncope 20 years ago after bending over and standing up quickly. He reports having an unremarkable Holter monitor and stress test at that time. He states last resting echo was unremarkable in summer of 2015. Family reports possible syncope episodes within the past 5 years but are not able to recall details. Physical Exam (per Admitting): General Appearance: WD/WN, no apparent distress, + pertinent finding ( pleasant alert 76 year old male, no distress, , daughter, granddaughter, [employer] field agent at bedside) Head: normocephalic, atraumatic Eyes: normal inspection, PERRL, EOMI ENT: pharynx normal, + pertinent finding (bilateral hearing aids) Neck: supple, trachea midline Respiratory/Chest: lungs clear, normal breath sounds, no respiratory distress, no accessory muscle use Cardiovascular: regular rate, rhythm, no murmur, normal peripheral pulses Abdomen/GI: normal bowel sounds, non tender, soft Extremities/Musculoskelatal: no calf tenderness, no pedal edema Neurologic/Psych: 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 toes are downgoing. ) Skin: normal color, warm/dry Hospital Course PRESYNCOPE Possibly due to orthostatic hypotension vs hypotension Had inferior ST elevation prior to arrival which resolved on repeat EKG Heart alert called in ER; patient evaluated by Dr. Reyes [id number] negative Cardiology consulted Case discussed with Dr. Phan that recommends to decrease lisinopril to 5 mg and verapamil to 120mg Has been complaint of chest pain for several month that is stable, denies any chest pain currently Pt does not want to stay in the hospital for further testing. He will need a Lexiscan nuclear stress test. He said that he will like to get the Lexiscan nuclear stress test done through the [facility] Echo done Normal LV chamber size and wall thickness. * Normal LV systolic function, EF 65-70%. * No segmental left ventricular wall motion abnormalities are noted. * Grade I diastolic dysfunction. * No significant valvular pathology. POSSIBLE KAYE Creatinine is 1.7 on admission Creatine improved to 1.4 today Stable ATELECTASIS CXR showed bibasilar opacities suggestive of atelectasis Denies fever, cough, SOB Incentive spirometry ordered HYPERLIPIDEMIA Continue pravastatin DVT PROPHYLAXIS Heparin SQ CODE STATUS Full code per my discussion with the patient DISPOSITION Total time spent on discharge = 35 minutes This includes examination of the patient, discharge planning, medication reconciliation, and communication with other providers. Discharge Instructions Discharge Instructions Date of Service July 15, 2016. Admission Reason for Admission: Postural Dizziness W/Presyncope Discharge Discharge Diagnosis / Problem: PRESYNCOPE, ACUTE KIDNEY INJURY Discharge Goals Goal(s): Decrease discomfort, Improve function, Improve disease control Activity Recommendations Activity Limitations: resume your previous activity ( TOLERATED) . Instructions / Follow-Up Instructions / Follow-Up Please follow up with your primary care physician at the [facility] in 1-2 weeks You will need a Lexiscan nuclear stress test that needs to be arranged by your physician at the [facility] Monitor your blood pressure Lisinopril decreased to 5 mg daily Verapamil decreased to 120mg daily Your physician can manage your blood pressure by titrate the blood pressure medications Current Hospital Diet Patient's current hospital diet: AHA Diet (Heart Healthy) Discharge Diet Recommended Diet: AHA Diet (Heart Healthy) Pending Studies Studies pending at discharge: no Laboratory Results Lipid Panel Test 07/15/16 05:12 Range/Units Triglycerides Level 93 0-150 mg/dl Cholesterol Level 139 0-200 mg/dl HDL Cholesterol 37 mg/dl Cholesterol/HDL Ratio 3.8 LDL Cholesterol, Calculated 83 mg/dl Medical Emergencies . Who to Call and When: Medical Emergencies: If at any time you feel your situation is an emergency, please call 911 immediately. . Non-Emergent Contact Non-Emergency issues call your: Primary Care Provider Call Non-Emergent contact if: you have any medication questions . . "Provider Documentation" section prepared by Wild Elena. . VTE Core Measure Inpt VTE Proph given/why not?: Unfractionated heparin SQ Additional Copies To Tess Elmore C.R.N.P.
== END 2016-07-15 17:47 | disposition home or self-care (01) ==
LOC: ENRESERVTM → ENRESERVDT → EDBD 12:31 → C.EDB 12:33 → C.MED 15:05 → EDBEDREQ 15:07
PROVIDERS: ADMIT Hospitalist; ATTEND Internal Medicine
DX: R55 Syncope and collapse (principal); N17.9 Acute kidney failure, unspecified; J98.11 Atelectasis; I95.1 Orthostatic hypotension; R94.31 Abnormal electrocardiogram [ECG] [EKG]; E78.00 Pure hypercholesterolemia, unspecified; I10 Essential (primary) hypertension; E78.5 Hyperlipidemia, unspecified; Z90.49 Acquired absence of other specified parts of digestive tract; Z82.49 Family history of ischemic heart disease and other diseases of the circulatory system; Z83.3 Family history of diabetes mellitus